=== PATIENT | female | born 1975 | race African-American/Black ===

== ENCOUNTER 2019-02-27 21:21 | Emergency (ER) | payer BC ==
[~2019-02-27] VITALS: Ht 152.4 cm; Wt 115.0 kg
[2019-02-27] MEDS ORDERED: KETOROLAC 30MG/ML VIAL IV STA (23:28)
[2019-02-27] MEDS ORDERED: METOCLOPRAMIDE HCL 10MG/2ML VIAL IV STA (23:28)
[2019-02-27] MEDS ORDERED: SODIUM CHLORIDE 0.9% 1,000 ML IV ONE (23:28)
[2019-02-27 23:56] LABS: BASOPHILS % 0.6 % (0.0-2.0); EOSINOPHILS % 0.3 % (0.0-5.0); HEMATOCRIT. 36.6 % (36.0-48.0); HEMOGLOBIN. 11.9 g/dL (12.0-16.0); LYMPHOCYTES % 11.5 % (20.0-50.0); MEAN CORPUSCULAR HEMOGLOBIN 24.7 pg (28.0-32.0); MONOCYTES % 4.6 % (2.0-8.0); PLATELET 339 x1000/uL (130-400); RED BLOOD CELL COUNT 4.81 mill/uL (4.2-5.4); RED CELL DISTRIBUTION WIDTH 17.3 % (11.6-14.6)
[2019-02-28] MEDS ORDERED: DIPHENHYDRAMINE 50MG/ML VIAL IV ONE
[2019-02-28 00:03] LABS: CHLORIDE 104 mEq/L (98-107)
[2019-02-28 00:04] LABS: PROTHROMBIN TIME 10.4 sec (9.6-11.0)
[2019-02-28 01:27] LABS: CLARITY URINE CLEAR (CLEAR); COLOR URINE YELLOW (YELLOW); KETONES URINE 2+ (NEGATIVE); LEUKOCYTE ESTERASE URINE TRACE (NEGATIVE); NITRITE URINE NEGATIVE (NEGATIVE); OCCULT BLOOD URINE TRACE (NEGATIVE); PH URINE 8.5 (4.5-8.0); PROTEIN URINE 2+ (NEGATIVE); SPECIFIC GRAVITY URINE 1.024 (1.005-1.030); UROBILINOGEN URINE 0.2 E.U./dL (0.2-1.0)
[2019-02-28 02:15] VITALS: BP 171/89
== END 2019-02-28 02:16 | disposition home or self-care (01) ==
LOC: ER 21:21
DX: K52.9 Noninfective gastroenteritis and colitis, unspecified (principal); N39.0 Urinary tract infection, site not specified; R51 Headache; E86.0 Dehydration; J45.909 Unspecified asthma, uncomplicated; I10 Essential (primary) hypertension; F17.200 Nicotine dependence, unspecified, uncomplicated; Z91.040 Latex allergy status; Z90.710 Acquired absence of both cervix and uterus; Z96.649 Presence of unspecified artificial hip joint
CPT/HCPCS: 36415; 80053; 81003; 81025; 83690; 84484; 85025; 85610; 87804; 93005; 96361; 96374; 96375; 99284; J1200; J1885; J2765; J7030